=== PATIENT | female | born 1980 | race Caucasian/White ===

== ENCOUNTER 2016-12-23 21:56 | Emergency (ER) | payer MEDICAID, OTHER ==
[~2016-12-23] VITALS: Ht 152.4 cm; Wt 55.0 kg
[2016-12-23 22:00] VITALS: Ht 152.4 cm; Wt 55.0 kg
[2016-12-24 00:20] LABS: URINE BLOOD (Dip) POC 2+ (NEGATIVE)
[2016-12-24] MEDS ORDERED: PHEN-538 PO (00:34)
[2016-12-24] MEDS ORDERED: CEPH-443 PO (00:34)
--- NOTE | 2016-12-24 00:34 | ERD ---
ER Documentation Chief Complaint Date/Time DATE: 12/24/16 TIME: 00:24 Chief Complaint dysuria, hematuria pelvic pain x 3 days HPI 36-year-old female presents here in emergency department for complaint of dysuria and hematuria suprapubic pubic pain. Patient's complaining of dysuria, burning pain, 4/10 accompanied with hematuria. Patient denies any flank pain. Patient denies any fever or chills. Patient denies any fever or chills. Patient denies any nausea or vomiting. ROS All systems reviewed and are negative except as per history of present illness. Medications Home Meds Reported Medications [none] Unknown Strength No Conflict Check 12/24/16 Allergies Allergies: Coded Allergies: No Known Allergy (Unverified , 12/23/16) PMhx/Soc Medical and Surgical Hx: pt denies Medical Hx, pt denies Surgical Hx History of Surgery: No Anesthesia Reaction: No Hx Neurological Disorder: No Hx Respiratory Disorders: No Hx Cardiac Disorders: No Hx Psychiatric Problems: No Hx Alcohol Use: No Hx Substance Use: No Hx Tobacco Use: No Smoking Status: Never smoker FmHx Family History: No coronary disease, No diabetes, No other Physical Exam Vitals Vital Signs Date Time Temp Pulse Resp B/P Pulse Ox O2 Delivery O2 Flow Rate FiO2 12/23/16 22:00 98.8 89 20 113/58 99 Physical Exam GENERAL: The patient is well developed and appropriate for usual state of health, in no apparent distress. CHEST: Clear to auscultation bilaterally. There are no rales, wheezes or rhonchi. HEART: Regular rate and rhythm. No murmurs, clicks, rubs or gallops. No S3 or S4. ABDOMEN: Soft, nontender and nondistended. Good bowel sounds. No rebound or guarding. No gross peritonitis. No gross organomegaly or masses. No Earl sign or McBurney point tenderness. BACK: No midline or flank tenderness. EXTREMITIES: Equal pulses bilaterally. There is no peripheral clubbing, cyanosis or edema. No focal swelling or erythema. Full range of motion. Grossly neurovascularly intact. NEURO: Alert and oriented. Cranial nerves 2-12 intact. Motor strength in all 4 extremities with 5/5 strength. Sensation grossly intact. Normal speech and gait. SKIN: There is no apparent rash or petechia. The skin is warm and dry. HEMATOLOGIC AND LYMPHATIC: There is no evidence of excessive bruising or lymphedema. No gross cervical, axillary, or inguinal lymphadenopathy. Results 24 hrs Laboratory Tests Test 12/24/16 00:24 Bedside Urine pH (LAB) 6.5 Bedside Urine Protein (LAB) Negative Bedside Urine Glucose (UA) Negative Bedside Urine Ketones (LAB) Negative Bedside Urine Blood 2+ Bedside Urine Nitrite (LAB) Negative Bedside Urine Leukocyte Esterase (L Trace Procedures/MDM Medical Decision Making: Patients symptoms are consistent with urinary tract infection. There is low suspicion for pyelonephritis. There is low suspicion for abdominal emergencies at this time. Patients abdominal exam is normal. There is low suspicion for sepsis. Patient appears well and is hemodynamically stable. Disposition: Home. Stable Prescription Keflex, Pyridium Instructions: Patient is advised to take medications as prescribed. Patient is advised to rest, increase fluid intake and do good perineal hygiene. Patient is advised that if symptoms are worse, severe abdominal pain, uncontrolled vomiting , high fever, severe flank pain, worst signs and symptoms, to return to the emergency department immediately. Otherwise, patient can follow up with primary care doctor in 5-7 days. Departure Diagnosis: Primary Impression: UTI (urinary tract infection) Urinary tract infection type: acute cystitis Hematuria presence: without hematuria Qualified Code: N30.00 - Acute cystitis without hematuria Condition: Stable Patient Instructions: Understanding Urinary Tract Infections (UTIs) Additional Instructions: Patient is advised to take medications as prescribed. Patient is advised to rest, increase fluid intake and do good perineal hygiene. Patient is advised that if symptoms are worse, severe abdominal pain, uncontrolled vomiting, high fever, severe flank pain, worst signs and symptoms, to return to the emergency department immediately. Otherwise, patient can follow up with primary care doctor in 5-7 days. THA HUNG NP Dec 24, 2016 00:33
[2016-12-24 00:43] VITALS: PULSE 77; RESP 18; TEMP 98.8
== END 2016-12-24 00:44 | disposition home or self-care (01) ==
LOC: FTE 21:56
DX: N30.00 Acute cystitis without hematuria (principal); R10.2 Pelvic and perineal pain
CPT/HCPCS: 81003; Z7502; 99283

== ENCOUNTER 2017-04-04 17:39 | Emergency (ER) | payer MEDICAID ==
[~2017-04-04] VITALS: Ht 162.6 cm; Wt 55.0 kg
[~2017-04-04 17:39] MED LIST: CEPH-443 PO; PHEN-538 PO
[2017-04-04 17:56] VITALS: Ht 162.6 cm; Wt 55.0 kg
--- NOTE | 2017-04-04 19:04 | ERD ---
ER Documentation Chief Complaint Date/Time DATE: 04/04/17 TIME: 19:03 Chief Complaint BURNING URINATION X 1 WEEK HPI 37-year-old female presents emergency department for burning of urination for about a week. LMP: 02/26/2017. A0. Denies headache, dizziness, blurry vision, neck pain, shoulder pain, chest pain , back pain, abdominal pain, nausea, vomiting, hematuria, , possibility of being , constipation, diarrhea, recent exposure to any illness, recent antibiotic use in the last 3 months, fever, chills. No known drug allergies. No past medical history. No surgeries. Does not take any prescription medication at home. 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 Denies smoking, use of alcohol, use of illegal drugs. ROS All systems reviewed and are negative except as per history of present illness. Medications Home Meds Active Scripts Acetaminophen* (Tylophen*) 500 Mg Capsule, 1 CAP PO Q6H Y for PAIN AND OR ELEVATED TEMP, #20 CAP Prov:PASILABANEMEKA F 04/04/17 Ibuprofen* (Motrin*) 600 Mg Tab, 600 MG PO Q8, #30 TAB Prov:PASILABANEMEKA 04/04/17 Phenazopyridine Hcl* (Pyridium*) 200 Mg Tab, 200 MG PO TID Y for URINARY PAIN, # 6 TAB Prov:PASILABANEMEKA F 04/04/17 Cephalexin* (Keflex*) 500 Mg Capsule, 500 MG PO TID for 7 Days, CAP Prov:PASILABAN,NOEMIAR F 04/04/17 Phenazopyridine Hcl* (Pyridium*) 200 Mg Tab, 200 MG PO TID Y for URINARY PAIN, # 6 TAB Prov:THA HUNG NP 12/24/16 Cephalexin* (Keflex*) 500 Mg Capsule, 500 MG PO QID for 10 Days, CAP Prov:THA HUNG NP 12/24/16 Reported Medications [none] Unknown Strength No Conflict Check 12/24/16 Allergies Allergies: Coded Allergies: No Known Allergy (Unverified , 04/04/17) PMhx/Soc History of Surgery: No Anesthesia Reaction: No Hx Neurological Disorder: No Hx Respiratory Disorders: No Hx Cardiac Disorders: No Hx Psychiatric Problems: No Hx Alcohol Use: No Hx Substance Use: No Hx Tobacco Use: No Physical Exam Vitals Vital Signs Date Time Temp Pulse Resp B/P Pulse Ox O2 Delivery O2 Flow Rate FiO2 04/04/17 17:56 98.4 86 20 118/58 100 Physical Exam Const: [] Head: Atraumatic Eyes: Normal Conjunctiva ENT: Normal External Ears, Nose and Mouth. Neck: Full range of motion..~ No meningismus. Resp: Clear to auscultation bilaterally Cardio: Regular rate and rhythm, no murmurs Abd: Soft, non tender, non distended. Normal bowel sounds Skin: No petechiae or rashes Back: No midline or flank tenderness Ext: No cyanosis, or edema Neur: Awake and alert Psych: Normal Mood and Affect Results 24 hrs Laboratory Tests Test 04/04/17 19:23 Bedside Urine pH (LAB) 5.0 Bedside Urine Protein (LAB) Trace Bedside Urine Glucose (UA) Negative Bedside Urine Ketones (LAB) Negative Bedside Urine Blood 3+ Bedside Urine Nitrite (LAB) Negative Bedside Urine Leukocyte Esterase (L 3+ Procedures/MDM Examination: Please see physical examination. Disease process, medical treatment was explained to the patient and family member. They verbalized understanding and agreed with the diagnostic tests, medical treatment, and follow-up care. POC urine : Negative. POC urine dip: UTI. Treatment: Re-evaluation: Denies headache, dizziness, blurry vision, neck pain, shoulder pain, chest pain, back pain, abdominal pain, nausea, vomiting. No episode of emesis in the emergency department. There is no abdominal tenderness light and deep palpation. Negative and psoas sign. Negative [place] sign. Negative on Rovsing sign. No CVA tenderness. No peritoneal signs. Able to jump 10 times without having abdominal pain. Ambulatory with steady gait. No neurovascular deficit no neurological deficits. Consultation: None. Differential diagnosis: Urinary tract infection Medical decision making: Discharge with final diagnosis of urinary tract infection, dysuria. Medications prescribed are the following: Keflex. Pyridium. Motrin. Tylenol. Patient and family member are made aware of the side effects and adverse reactions of the medications prescribed. Instructed on when to seek emergent and medical attention in case allergic/anaphylactic reactions or severe side effects and or adverse reactions to medications. Patient and family member verbalized understanding. Patient instructed Instructed to follow-up with his PCP in 24-48 hours. Instructed to Call 911 for chest pain, shortness of breath. Advised to come back here in ED as soon as possible for severity of symptoms which includes but not limited to: any new symptoms; shortness of breath/difficulty of breathing; cardiovascular changes; severe gastrointestinal symptoms; signs and symptoms of bleeding and or infection; signs of compartment syndrome/neurovascular changes; neurological changes/deficits. Patient and family member verbalized understanding. Upon discharge, patient is alert and oriented x 4, speaks full and clear sentences, denies pain, has no neurological deficits, has no neurovascular deficits, difficulty of breathing. Breathing even and unlabored. Lung sounds are clear to auscultation. Not in distress. Appears comfortable. Ambulatory with steady gait. Appears satisfied with care provided here in ED. Departure Diagnosis: Primary Impression: Dysuria Additional Impression: UTI (urinary tract infection) Condition: Stable Additional Instructions: Instructed to follow-up with his PCP in 24-48 hours. Instructed to Call 911 for chest pain, shortness of breath. Advised to come back here in ED as soon as possible for severity of symptoms which includes but not limited to: any new symptoms; shortness of breath/difficulty of breathing; cardiovascular changes; severe gastrointestinal symptoms; signs and symptoms of bleeding and or infection; signs of compartment syndrome/neurovascular changes; neurological changes/deficits. Patient and family member verbalized understanding. EMEKA GARCIA Apr 04, 2017 19:04 EMEKA GARCIA Apr 04, 2017 19:04
[2017-04-04 19:16] LABS: URINE BLOOD (Dip) POC 3+ (NEGATIVE)
[2017-04-04] MEDS ORDERED: CEPH-443 PO (19:58)
[2017-04-04] MEDS ORDERED: ACET500C5 PO (19:59)
[2017-04-04] MEDS ORDERED: PHEN-538 PO (19:59)
[2017-04-04] MEDS ORDERED: IBUP-1542 PO (19:59)
== END 2017-04-04 20:53 | disposition home or self-care (01) ==
LOC: FTE 17:39
DX: N39.0 Urinary tract infection, site not specified (principal)
CPT/HCPCS: 81003; Z7502; 99283

== ENCOUNTER 2018-03-14 01:29 | Emergency (ER) | END 2018-03-14 02:19 | disposition home or self-care (01) ==

== ENCOUNTER 2019-02-06 19:43 | Emergency (ER) | payer MEDICAID ==
[~2019-02-06] VITALS: Ht 152.4 cm; Wt 62.6 kg
[~2019-02-06 19:43] MED LIST changes: +ACET500C5 PO; +CYCL10TA7 PO; +HYDR-4011 PO; +IBUP-1542 PO
[2019-02-06 19:48] VITALS: BP 119/66; PULSE 84; RESP 16; Ht 152.4 cm; Wt 62.6 kg
[2019-02-06] MEDS ORDERED: PHENAZOPYRIDINE 100 MG TAB PO ONE (20:30)
[2019-02-06] MEDS ORDERED: CEPHALEXIN 500 MG CAP PO ONE (20:30)
[2019-02-06] MEDS ORDERED: PHEN-538 PO (20:32)
[2019-02-06] MEDS ORDERED: CEPH-443 PO (20:32)
--- NOTE | 2019-02-06 20:34 | ERD ---
ER Documentation Chief Complaint Chief Complaint blood tinged urine with pain in urination started 5 hours ago. HPI 39-year-old female presents with dysuria with blood-tinged urine started today. She may have had some mild dysuria for the last few days as well. She denies fevers, vomiting, flank pain, abdominal pain. She denies . She denies previous history of UTI. ROS All systems reviewed and are negative except as per history of present illness. Medications Home Meds Active Scripts Phenazopyridine Hcl* (Pyridium*) 200 Mg Tab, 200 MG PO TID PRN for URINARY PAIN, #6 TAB Prov:CHELSIE GILLESPIE MD 02/06/19 Cephalexin* (Keflex*) 500 Mg Capsule, 500 MG PO QID for 5 Days, CAP Prov:CHELSIE GILLESPIE MD 02/06/19 Hydrocodone/Acetaminophen ([place] 5-325 Tablet) 1 Each Tablet, 1 TAB PO Q6H PRN for SEVERE PAIN LEVEL 7-10, #7 TAB Prov:THA HUNG NP 03/14/18 Cyclobenzaprine Hcl* (Cyclobenzaprine Hcl*) 10 Mg Tablet, 10 MG PO TID, #15 TAB Prov:THA HUNG NP 03/14/18 Ibuprofen* (Motrin*) 600 Mg Tab, 600 MG PO Q6H PRN for PAIN AND OR ELEVATED TEMP, #30 TAB Prov:THA HUNG NP 03/14/18 Acetaminophen* (Tylophen*) 500 Mg Capsule, 1 CAP PO Q6H PRN for PAIN AND OR ELEVATED TEMP, #20 CAP Prov:EMEKA GARCIA 04/04/17 Ibuprofen* (Motrin*) 600 Mg Tab, 600 MG PO Q8, #30 TAB Prov:PASILAEMEKA LINDO F 04/04/17 Phenazopyridine Hcl* (Pyridium*) 200 Mg Tab, 200 MG PO TID PRN for URINARY PAIN, #6 TAB Prov:PASILANOEMI LINDOAR F 04/04/17 Cephalexin* (Keflex*) 500 Mg Capsule, 500 MG PO TID for 7 Days, CAP Prov:PASILAEMEKA LINDO F 04/04/17 Phenazopyridine Hcl* (Pyridium*) 200 Mg Tab, 200 MG PO TID PRN for URINARY PAIN, #6 TAB Prov:ABHILASHTHA WAFER [employer]ER 12/24/16 Cephalexin* (Keflex*) 500 Mg Capsule, 500 MG PO QID for 10 Days, CAP Prov:THA HUNG RAMSEY TRyan WAFER [employer]ER 12/24/16 Reported Medications [none] Unknown Strength No Conflict Check 12/24/16 Allergies Allergies: Coded Allergies: No Known Allergy (Unverified , 02/06/19) PMhx/Soc Medical and Surgical Hx: pt denies Medical Hx, pt denies Surgical Hx History of Surgery: No Anesthesia Reaction: No Hx Neurological Disorder: No Hx Respiratory Disorders: No Hx Cardiac Disorders: No Hx Psychiatric Problems: No Hx Miscellaneous Medical Probl: No Hx Alcohol Use: No Hx Substance Use: No Hx Tobacco Use: No Smoking Status: Never smoker Physical Exam Vitals Vital Signs Date Temp Pulse Resp B/P (MAP) Pulse Ox O2 O2 Flow FiO2 Time Delivery Rate 02/06/19 97.3 84 16 119/66 98 19:48 (83) Physical Exam Const: No acute distress Head: Atraumatic Eyes: Normal Conjunctiva ENT: Normal External Ears, Nose and Mouth. Neck: Full range of motion. No meningismus. Resp: Clear to auscultation bilaterally Cardio: Regular rate and rhythm, no murmurs Abd: Soft, non tender, non distended. Normal bowel sounds Skin: No petechiae or rashes Back: No midline or flank tenderness Ext: No cyanosis, or edema Neur: Awake and alert Psych: Normal Mood and Affect Results 24 hrs Laboratory Tests Test 02/06/19 20:09 02/06/19 20:10 Bedside Urine pH (LAB) 7.5 Bedside Urine Protein (LAB) Negative Bedside Urine Glucose (UA) Negative Bedside Urine Ketones (LAB) Negative Bedside Urine Blood 2+ Bedside Urine Nitrite (LAB) Negative Bedside Urine Leukocyte Esterase (L 1+ POC Beta HCG, Qualitative NEGATIVE Current Medications Medications Dose Sig/Prema Start Time Status Last (Trade) Ordered Route PRN Stop Time Admin Dose Reason Admin Cephalexin 500 mg ONCE ONCE 02/06/19 UNV (Keflex) PO 20:30 02/06/19 20:31 200 mg ONCE ONCE 02/06/19 UNV Phenazopyridi PO 20:30 ne HCl 02/06/19 20:31 (Pyridium) Procedures/MDM Urine shows leukocytes and hemoglobin. hCG negative. Patient given Keflex and Pyridium. Patient presents with dysuria and signs of uncomplicated UTI. She has no signs of concerning abdominal pain, SIRS criteria, additional concerning signs or symptoms. Doubt tubo-ovarian abscess. She is well-appearing. She will be treated with Keflex, Pyridium, instructions for fluids, primary care follow-up and return precautions. The patient was stable with no new complaints during the ER course. Clinically, there is no current evidence to suggest meningitis, sepsis, acute abdomen, pneumonia, stroke, acute coronary syndrome, pulmonary embolism, aortic dissection or any other emergent condition appearing to require further evaluation or hospitalization. Patient counseled regarding my diagnostic impression and care plan. Prior to discharge all questions answered. Pt agrees with treatment plan and understands strict return precautions. Pt is instructed to follow up with primary care provider within 24- 48 hours. Precautionary instructions provided including instructions to return to the ER if not improving or for any worsening or changing symptoms or concerns. Disclaimer: Inadvertent spelling and grammatical errors are likely due to EHR/dictation software use and do not reflect on the overall quality of patient care. Also, please note that the electronic time recorded on this note does not necessarily reflect the actual time of the patient encounter. Departure Diagnosis: Primary Impression: UTI (urinary tract infection) Urinary tract infection type: acute cystitis Hematuria presence: without hematuria Qualified Codes: N30.00 - Acute cystitis without hematuria Condition: Stable Patient Instructions: Understanding Urinary Tract Infections (UTIs) Referrals: NO PRIMARY,CARE PHYSICIAN (PCP) Additional Instructions: orina tiene infeccion. Cheque otro vez con [facility] doctor primario en el proximo adams or regresa para mas o nueva simptomas. CHELSIE GILLESPIE MD Feb 06, 2019 20:34
== END 2019-02-06 20:49 | disposition home or self-care (01) ==
LOC: FTE 19:43
DX: N30.00 Acute cystitis without hematuria (principal)
CPT/HCPCS: 81003; 81025; Z7502; Z7610